=== PATIENT | female | born 1950 | race Caucasian/White ===

== ENCOUNTER 2022-03-02 09:01 | Emergency (ER) | payer MEDICARE ==
[2022-03-02 10:47] LABS: HEMOGLOBIN 14.7 gm/dl (12.3-15.3); RED BLOOD COUNT 4.92 M/UL (4.00-5.10); WHITE BLOOD COUNT 4.9 K/UL (4.5-11.0)
== END 2022-03-02 14:31 | disposition left against medical advice (07) ==
LOC: ER1 09:01
PROVIDERS: Physician Assistant
DX: R10.9 Unspecified abdominal pain (principal); W19.XXXA Unspecified fall, initial encounter
CPT/HCPCS: 71111; 80053; 85025; 99283